=== PATIENT | male | born 1965 | race Hispanic/Latino ===

== ENCOUNTER 2017-09-08 17:04 | Emergency (ER) | payer MEDICAID ==
[2017-09-08] MEDS ORDERED: Aspirin 325 mg EC Tablets PO STA (17:21)
[2017-09-08 17:48] LABS: CHLORIDE 101 mmol/L (98-107); SODIUM 138 mmol/L (132-148)
[2017-09-08 17:49] LABS: POTASSIUM 3.9 mmol/L (3.6-5.2)
[2017-09-08 17:50] LABS: GFR AFRICAN-AMERICAN > 60
[2017-09-08 17:51] LABS: ALB/GLOB RATIO 1.1 (1.0-2.1); ALKALINE PHOSPHATASE 89 U/L (38-126); ALT/SGPT 164 U/L (21-72); AST/SGOT 43 U/L (17-59); BILIRUBIN,TOTAL 0.7 mg/dL (0.2-1.3); BLOOD UREA NITROGEN 12 mg/dL (9-20); CALCIUM 9.3 mg/dl (8.6-10.4); CARBON DIOXIDE 30 mmol/L (22-30); GLUCOSE,RANDOM 95 mg/dL (75-110); TOTAL PROTEIN 7.3 g/dL (6.3-8.3)
[2017-09-08 17:52] LABS: ALCOHOL SERUM < 10 mg/dl (0-10)
--- NOTE | 2017-09-08 17:56 | C.PDOC ---
History Of Present Illness 52 year old male, with PMHx of heroin abuse, is brought to ED via ALS for evaluation of sudden onset of sharp chest pain in the worship today. Denies any associated nausea, vomiting, shortness of breath, cough, or diaphoresis. Pt states that his symptoms feel the same way as his previous OH in 2011, but believes that he is withdrawing. Notes using 3-4 bags of heroin a day intranasally, last use was yesterday. No other complaints. Time Seen by Provider: 09/08/17 17:15 Chief Complaint (Nursing): Chest Pain History Per: Patient History/Exam Limitations: no limitations Onset/Duration Of Symptoms: Hrs Current Symptoms Are (Timing): Still Present Quality: Sharp Associated Symptoms: denies: Nausea, Dyspnea, Diaphoresis, Syncope Modifying Factors: None Exacerbating Factors: None Alleviating Factors: None Recent travel outside of the [place]: No Additional History Per: Patient Past Medical History Reviewed: Historical Data, Nursing Documentation, Vital Signs Vital Signs: Last Vital Signs Temp 98.9 F 09/08/17 17:14 Pulse 80 09/08/17 17:14 Resp 19 09/08/17 17:14 BP 147/65 09/08/17 17:14 Pulse Ox 97 09/08/17 20:42 - Medical History PMH: Asthma Family History: States: Unknown Family Hx - Social History Hx Alcohol Use: No Hx Substance Use: Yes - Immunization History Hx Tetanus Toxoid Vaccination: No Hx Influenza Vaccination: No Hx Pneumococcal Vaccination: No Review Of Systems Except As Marked, All Systems Reviewed And Found Negative. Constitutional: Negative for: Fever, Chills Cardiovascular: Positive for: Chest Pain. Negative for: Palpitations, Edema, Light Headedness Respiratory: Negative for: Cough, Shortness of Breath, Hemoptysis Gastrointestinal: Negative for: Nausea, Vomiting, Abdominal Pain Neurological: Negative for: Headache, Dizziness Psych: Positive for: Withdrawal. Negative for: Suicidal ideation Physical Exam - Physical Exam Appears: Non-toxic, No Acute Distress Skin: Normal Color, Warm, Dry Head: Atraumatic, Normacephalic Eye(s): bilateral: Normal Inspection, PERRL, EOMI Oral Mucosa: Moist Neck: Normal ROM, Supple Chest: Symmetrical, No Deformity, No Tenderness, No Ecchymosis Cardiovascular: Rhythm Regular, No Murmur Respiratory: Normal Breath Sounds, No Accessory Muscle Use, No Rales, No Rhonchi , No Wheezing Gastrointestinal/Abdominal: Normal Exam, Soft, No Tenderness Extremity: Normal ROM, No Pedal Edema, No Deformity Neurological/Psych: Oriented x3, Normal Speech, Normal Cognition ED Course And Treatment - Laboratory Results Result Diagrams: 09/08/17 17:32 09/08/17 17:32 Lab Interpretation: Normal ECG: Interpreted By Me ECG Rhythm: Sinus Rhythm ECG Interpretation: No Acute Changes O2 Sat by Pulse Oximetry: 97 (RA) Pulse Ox Interpretation: Normal - CT Scan/US No standard instances Other Rad Studies (CT/US): Read By Radiologist, Radiology Report Reviewed CT/US Interpretation: FINDINGS: Artifacts: Motion artifact degrades image quality. Lungs and pleural spaces: Trachea and main bronchi are patent.There is no pneumothorax. There. is no lobar or segmental consolidation. There is dependent atelectasis. There are no effusions. Heart and Vasculature: There is a persistent left superior vena cava. Heart size is normal. There is. no pericardial effusion. There is minimal coronary artery calcification. HeThere is no aneurysm or. dissection. Motion and bolus timing limits evaluation of pulmonary arteries. There are no central. pulmonary emboli. Mediastinum: There are shotty mediastinal nodes. There are no pathologically enlarged hilar nodes. There is mid and distal esophageal wall thickening. There is gastric wall thickening at the. gastroesophageal junction. Thyroid: Thyroid is unremarkable. Bones/joints: There are degenerative changes in the osseus structures. Soft tissues: unremarkable. Upper abdomen: There are no acute abnormalities in the visualized portion of the abdomen. IMPRESSION: Mid and distal esophageal wall thickening with mild gastric wall thickening at the. gastroesophageal junction, inflammatory versus neoplastic; no acute pulmonary disease Progress Note: Blood work, UA, EKG, chest CT scan ordered and reviewed. Patient was given Aspirin, and Nitroglycerin. Patient to be evaluated by crisis. Reevaluation Time: 20:48 Reassessment Condition: Unchanged (Patient has no chest pain at this time and is requesting Methadone. He was evaluated by Crisis and provided with referrals to detox programs. He was given CT results and states that he does have reflux symptoms daily.) Disposition Counseled Patient/Family Regarding: Studies Performed, Diagnosis, Need For Followup, Rx Given - Disposition Referrals: [facility] [Outside] Disposition: HOME/ ROUTINE Disposition Time: 20:49 Condition: STABLE Prescriptions: Omeprazole 40 mg PO DAILY #30 capsule. Instructions: Narcotic Abuse (ED), Esophagitis (ED), Gastroesophageal Reflux Disease (ED) Forms: [facility] (Sami) - Clinical Impression Clinical Impression: Narcotic abuse, Reflux esophagitis - Scribe Statement The provider has reviewed the documentation as recorded by the Salvadoribe Lesli Garnica All medical record entries made by the Salvadoribliss were at my direction and personally dictated by me. I have reviewed the chart and agree that the record accurately reflects my personal performance of the history, physical exam, medical decision making, and the department course for this patient. I have also personally directed, reviewed, and agree with the discharge instructions and disposition.
[2017-09-08 17:57] LABS: BASO % 0.4 % (0.0-2.0); EOS # 0.1 K/uL (0.0-0.7); EOS % 1.6 % (0.0-4.0); HEMATOCRIT 38.2 % (35.0-51.0); LYMPH # 1.8 K/uL (1.0-4.3); LYMPH % 25.3 % (20.0-40.0); MEAN CELL VOLUME 91.1 fL (80.0-94.0); MEAN CORPUSCULAR HEMOGLOBIN 30.5 pg (27.0-31.0); MEAN CORPUSCULAR HGB CONC 33.5 g/dL (33.0-37.0); MEAN PLATELET VOLUME 8.2 fL (7.2-11.7); MONO # 0.6 K/uL (0.0-0.8); MONO % 8.7 % (0.0-10.0); RED CELL DISTRIBUTION WIDTH 15.5 % (11.5-14.5); WHITE BLOOD COUNT 7.2 K/uL (4.8-10.8)
[2017-09-08] MEDS ORDERED: Iodixanol 320 MG/ML 100 ML BOTTLE IV ONE (18:45)
--- NOTE | 2017-09-08 20:13 | CT ---
EXAM: CT Chest With Intravenous Contrast EXAM DATE/TIME: 09/08/2017 5:21 PM CLINICAL HISTORY: 52 years old, male; Pain; Chest pain TECHNIQUE: Axial computed tomography images of the chest with intravenous contrast. All CT scans at this facility use one or more dose reduction techniques, viz.: automated exposure control; ma/kV adjustment per patient size (including targeted exams where dose is matched to indication; i.e. head); or iterative reconstruction technique. Coronal and sagittal reformatted images were created and reviewed. CONTRAST: 100 mL of [id number] administered intravenously. COMPARISON: There are no prior studies for comparison. FINDINGS: Artifacts: Motion artifact degrades image quality. Lungs and pleural spaces: Trachea and main bronchi are patent.There is no pneumothorax. There is no lobar or segmental consolidation. There is dependent atelectasis. There are no effusions. Heart and Vasculature: There is a persistent left superior vena cava. Heart size is normal. There is no pericardial effusion. There is minimal coronary artery calcification. HeThere is no aneurysm or dissection. Motion and bolus timing limits evaluation of pulmonary arteries. There are no central pulmonary emboli. Mediastinum: There are shotty mediastinal nodes. There are no pathologically enlarged hilar nodes. There is mid and distal esophageal wall thickening. There is gastric wall thickening at the gastroesophageal junction Thyroid: Thyroid is unremarkable Bones/joints: There are degenerative changes in the osseus structures. Soft tissues: unremarkable Upper abdomen: There are no acute abnormalities in the visualized portion of the abdomen. IMPRESSION: Mid and distal esophageal wall thickening with mild gastric wall thickening at the gastroesophageal junction, inflammatory versus neoplastic; no acute pulmonary disease Additional findings as described above.
[2017-09-08 21:42] LABS: RBC URINE 1 /hpf (0-3); URINE BILIRUBIN NEGATIVE (NEGATIVE); URINE BLOOD NEGATIVE (NEGATIVE); URINE COLOR Yellow (YELLOW); URINE GLUCOSE (UA) NORMAL (Normal); URINE KETONE NEGATIVE (NEGATIVE); URINE LEUKOCYTE ESTERASE NEG Leu/uL (Negative); URINE PROTEIN NEGATIVE (NEGATIVE); WBC URINE 2 /hpf (0-5)
[2017-09-09 04:31] VITALS: BP 119/77; PULSE 72; RESP 20; TEMP 97.9; O2SAT 98
--- NOTE | 2017-09-10 12:48 | CARD ---
APPROVED REPORT EKG Measurement Heart [id number] <Conclusion> Normal sinus rhythm Possible Left atrial enlargement Borderline ECG
== END 2017-09-09 04:38 | disposition short-term general hospital (02) ==
LOC: C.ER 17:04
DX: F11.10 Opioid abuse, uncomplicated (principal); K21.0 Gastro-esophageal reflux disease with esophagitis; I25.2 Old myocardial infarction
CPT/HCPCS: 71260; 80053; 80320; 80324; 80345; 80346; 80349; 80353; 80358; 80361; 81001; 83992; 84484; 85025; 93005; 99285; Q9967

== ENCOUNTER 2018-04-02 22:54 | Emergency (ER) | payer MEDICAID, OTHER ==
[2018-04-02 22:54] VITALS: BMI 21.9
[2018-04-02 23:08] VITALS: O2SAT 98
[2018-04-02 23:38] LABS: BASO % 0.5 % (0.0-2.0); EOS # 0.3 K/uL (0.0-0.7); EOS % 3.4 % (0.0-4.0); HEMOGLOBIN 11.9 g/dL (12.0-18.0); LYMPH # 2.3 K/uL (1.0-4.3); MEAN CORPUSCULAR HEMOGLOBIN 31.5 pg (27.0-31.0); MEAN CORPUSCULAR HGB CONC 34.2 g/dL (33.0-37.0); MEAN PLATELET VOLUME 7.8 fL (7.2-11.7); MONO # 0.7 K/uL (0.0-0.8); MONO % 8.4 % (0.0-10.0); NEUT # 4.8 K/uL (1.8-7.0); NEUT % 59.7 % (50.0-75.0); RBC 3.78 Mil/uL (4.40-5.90)
[2018-04-02 23:49] LABS: ALBUMIN 3.8 g/dL (3.5-5.0); ALT/SGPT 69 U/L (21-72); AST/SGOT 50 U/L (17-59); BLOOD UREA NITROGEN 19 mg/dL (9-20); CALCIUM 9.3 mg/dl (8.6-10.4); GFR AFRICAN-AMERICAN > 60; GFR NON-AFRICAN AMERICAN > 60
--- NOTE | 2018-04-02 23:52 | C.PDOC ---
History Of Present Illness patient seen tonite due to onset of left sided chwat pain . Had same episode few weeks ago and admitted to [facility]. with negatiive work up. Lwft sided chest pain inctreased by movement and palpation. Chief Complaint (Nursing): Chest Pain History Per: Patient History/Exam Limitations: no limitations Onset/Duration Of Symptoms: Hrs Current Symptoms Are (Timing): Still Present Severity: None Pain Scale Rating Of: 4 Location Of Discomfort (Image): 1 - left anterior cheat area Quality: Sharp Associated Symptoms: denies: Nausea, Dyspnea Exacerbating Factors: Turning, Movement, Other (palpation) Alleviating Factors: None Recent travel outside of the [place]: No Additional History Per: Patient Past Medical History Vital Signs: Last Vital Signs Temp 99.1 F 04/02/18 23:04 Pulse 68 04/02/18 23:04 Resp 20 04/02/18 23:04 BP 119/74 04/02/18 23:04 Pulse Ox 98 04/02/18 23:57 - Medical History PMH: Anxiety, Asthma, Depression, Sexually Transmitted Disease Denies: Diabetes, Hepatitis, HIV, HTN, Chronic Kidney Disease, Seizures Surgical History: No Surg Hx - [facility] Procedures DRAINAGE OF L UP ARM SUBCU/FASCIA, PERC APPROACH, DIAGN (11/04/17) DRAINAGE OF RIGHT UPPER ARM, PERCUTANEOUS APPROACH, DIAGN (03/18/18) INDIV PSYCHOTHERAPY FOR SUBSTANCE ABUSE TREATMENT, SUPPORT (01/02/18) INDIV PSYCHOTHERAPY FOR SUBSTANCE ABUSE, MOTIVATION ENHANCE (01/02/18) Family History: States: Unknown Family Hx - Social History Hx Alcohol Use: Yes Hx Substance Use: No - Immunization History Hx Tetanus Toxoid Vaccination: No Hx Influenza Vaccination: No Hx Pneumococcal Vaccination: No Review Of Systems Constitutional: Negative for: Fever, Chills, Sweats Cardiovascular: Positive for: Chest Pain. Negative for: Palpitations, Orthopnea , Paroxysmal Noc. Dyspnea, Edema, Light Headedness Respiratory: Negative for: Cough, Shortness of Breath, Hemoptysis, SOB with Excertion, Pleuritic Pain, Sputum Gastrointestinal: Negative for: Nausea, Vomiting, Abdominal Pain, Diarrhea Genitourinary: Negative for: Dysuria Musculoskeletal: Negative for: Neck Pain, Shoulder Pain, Arm Pain Skin: Negative for: Rash, Lesions Neurological: Negative for: Weakness, Numbness, Incoordination, Change in Speech , Dizziness Psych: Negative for: Anxiety, Depression Physical Exam - Physical Exam Appears: Non-toxic Skin: Normal Color Eye(s): bilateral: Normal Inspection, PERRL, EOMI Nose: Normal Throat: Normal Neck: Normal Chest: Symmetrical, No Deformity, Tenderness (left anterior chest wall), No Ecchymosis, No Subcutaneous Emphysema Cardiovascular: Rhythm Regular, No Edema, No Friction Rub, No Murmur, No JVD Respiratory: Normal Breath Sounds, No Rales Extremity: Normal ROM ED Course And Treatment - Laboratory Results Result Diagrams: 04/02/18 23:32 04/02/18 23:32 ECG: Interpreted By Me, Viewed By Me ECG Rhythm: Sinus Rhythm ECG Interpretation: No Acute Changes Interpretation Of ECG: NSR, possible LVH Rate From EC O2 Sat by Pulse Oximetry: 98 Pulse Ox Interpretation: Normal - Radiology CXR Interpretation: Yes: Other (patient refused Chest x-ray) Disposition Counseled Patient/Family Regarding: Diagnosis - Disposition Referrals: [facility] [Outside] Disposition: HOME/ ROUTINE Disposition Time: 01:43 Condition: STABLE Prescriptions: Naproxen 375 mg PO TIDPC #20 tablet Instructions: Costochondritis Forms: [facility] (Slovenian) - POA Present On Arrival: None - Clinical Impression Clinical Impression: Chest wall pain
[2018-04-03 00:01] LABS: CK-MB 0.91 ng/mL (0.0-3.38)
[2018-04-03 02:08] VITALS: BP 105/64; PULSE 75; RESP 16; TEMP 97.8
--- NOTE | 2018-04-05 17:04 | CARD ---
APPROVED REPORT EKG Measurement Heart [id number] <Conclusion> Normal sinus rhythm Minimal voltage criteria for LVH, may be normal variant Borderline ECG
== END 2018-04-03 02:15 | disposition home or self-care (01) ==
LOC: C.ER 22:54
DX: R07.89 Other chest pain (principal)
CPT/HCPCS: 80053; 84484; 85025; 96374; 99284; J1885

== ENCOUNTER 2018-05-29 13:04 | Inpatient (IN) | payer MEDICAID, OTHER ==
[2018-05-29 13:04] VITALS: BMI 22.2
--- NOTE | 2018-05-29 13:56 | C.PDOC ---
History Of Present Illness 53 year old male patient with PMHx of hepatitis C presents to the ER requesting detox for heroin. Patient denies homicide ideation, suicide ideation, fevers, and chills. Patient also smokes and does not have any medical complaints at this time. Time Seen by Provider: 05/29/18 13:41 History Per: Patient History/Exam Limitations: no limitations Modifying Factor(s): Narcotics (heroin), Other (nicotine) Associated Symptoms: denies: Suicidal Thoughts, Other (suicide ideation, fever, and chills) Past Medical History Reviewed: Historical Data, Nursing Documentation, Vital Signs Vital Signs: Last Vital Signs Temp 98.6 F 05/29/18 13:57 Pulse 59 L 05/29/18 13:57 Resp 20 05/29/18 13:57 BP 104/66 05/29/18 13:57 Pulse Ox 99 05/29/18 13:57 - Medical History PMH: Anxiety, Asthma, Depression, Sexually Transmitted Disease - [facility] Procedures DRAINAGE OF L UP ARM SUBCU/FASCIA, PERC APPROACH, DIAGN (11/04/17) DRAINAGE OF RIGHT UPPER ARM, PERCUTANEOUS APPROACH, DIAGN (03/18/18) INDIV PSYCHOTHERAPY FOR SUBSTANCE ABUSE TREATMENT, SUPPORT (01/02/18) INDIV PSYCHOTHERAPY FOR SUBSTANCE ABUSE, MOTIVATION ENHANCE (01/02/18) Family History: States: Unknown Family Hx - Social History Hx Alcohol Use: No Hx Substance Use: Yes (heroine) - Immunization History Hx Tetanus Toxoid Vaccination: Yes Hx Influenza Vaccination: No Hx Pneumococcal Vaccination: No Review Of Systems Except As Marked, All Systems Reviewed And Found Negative. Constitutional: Negative for: Fever, Chills Psych: Negative for: Suicidal ideation, Other (homicide ideation) Physical Exam - Physical Exam Appears: Non-toxic, No Acute Distress Skin: Normal Color, Warm, Dry Eye(s): bilateral: Normal Inspection Nose: Normal Oral Mucosa: Moist Throat: Normal Neck: Normal ROM, Supple Chest: Symmetrical, No Deformity Cardiovascular: Rhythm Regular Respiratory: Normal Breath Sounds, No Rales, No Rhonchi, No Wheezing Gastrointestinal/Abdominal: Soft, No Tenderness Extremity: Normal ROM (x4) Neurological/Psych: Oriented x3, Normal Speech, Normal Sensation, Normal Reflexes Gait: Steady ED Course And Treatment - Laboratory Results Result Diagrams: 05/29/18 16:17 05/29/18 16:17 Lab Interpretation: No Acute Changes Progress Note: Case discussed with adz worker who request admission to Dr Currie for Detox Reassessment Condition: Unchanged - Physician Consult Information Physician Contacted: Rom Currie Outcome Of Conversation: admit Medical Decision Making Medical Decision Making: Impression: polysubstance abuse Plans: -- blood work -- nicoderm -- UA -- pending detox bed Disposition Discussed With Dr.: Rom Currie Doctor Will See Patient In The: Hospital - Disposition Disposition: HOSPITALIZED Disposition Time: 17:00 Condition: STABLE Instructions: Drug Abuse and Drug Addiction (DC) - POA Present On Arrival: None - Clinical Impression Clinical Impression: Drug abuse, Narcotic abuse - PA / CCNA / Resident Statement MD/ has reviewed & agrees with the documentation as recorded. - Scribe Statement The provider has reviewed the documentation as recorded by the Salvadoribliss Sandoval Do All medical record entries made by the Scribe were at my direction and personally dictated by me. I have reviewed the chart and agree that the record accurately reflects my personal performance of the history, physical exam, medical decision making, and the department course for this patient. I have also personally directed, reviewed, and agree with the discharge instructions and disposition. Decision To Admit - Pt Status Changed To: Hospital Disposition Of: Inpatient - Admit Certification Admit to Inpatient:: After my assessment, the patient will require hospitalization for at least two midnights. This is because of the severity of symptoms shown, intensity of services needed, and/or the medical risk in this patient being treated as an outpatient. - InPatient: Physician Admission Certification: I certify that this patient requires 2 or more midnights of care for the following reason:: opioid abuse disorder - . Bed Request Type: Detox Admitting Physician: Rom Currie Patient Diagnosis: Drug abuse, Narcotic abuse
[2018-05-29 14:55] LABS: URINE BILIRUBIN NEGATIVE (NEGATIVE); URINE BLOOD NEGATIVE (NEGATIVE); URINE CLARITY Clear (Clear); URINE COLOR Yellow (YELLOW); URINE GLUCOSE (UA) NORMAL (Normal); URINE LEUKOCYTE ESTERASE NEG Leu/uL (Negative); URINE PROTEIN NEGATIVE (NEGATIVE); URINE UROBILINOGEN NORMAL mg/dL (0.2-1.0)
[2018-05-29 15:09] LABS: BARBITURATES, UR NEGATIVE (NEGATIVE); BENZODIAZEPINES, UR NEGATIVE (NEGATIVE); PHENCYCLIDINE, UR NEGATIVE (NEGATIVE)
[2018-05-29 15:10] LABS: OPIATES, UR POSITIVE (NEGATIVE)
[2018-05-29 16:21] LABS: BASO % 0.3 % (0.0-2.0); EOS # 0.2 K/uL (0.0-0.7); EOS % 3.6 % (0.0-4.0); HEMOGLOBIN 12.6 g/dL (12.0-18.0); LYMPH # 1.6 K/uL (1.0-4.3); MEAN CELL VOLUME 91.9 fL (80.0-94.0); MEAN CORPUSCULAR HEMOGLOBIN 31.4 pg (27.0-31.0); MEAN CORPUSCULAR HGB CONC 34.1 g/dL (33.0-37.0); MEAN PLATELET VOLUME 7.8 fL (7.2-11.7); MONO # 0.4 K/uL (0.0-0.8); MONO % 6.1 % (0.0-10.0); NEUT # 4.2 K/uL (1.8-7.0); RED CELL DISTRIBUTION WIDTH 13.8 % (11.5-14.5); WHITE BLOOD COUNT 6.4 K/uL (4.8-10.8)
[2018-05-29 16:34] LABS: ALB/GLOB RATIO 1.1 (1.0-2.1); ALBUMIN 3.7 g/dL (3.5-5.0); ALT/SGPT 41 U/L (21-72); AST/SGOT 30 U/L (17-59); BLOOD UREA NITROGEN 11 mg/dL (9-20); CALCIUM 8.9 mg/dl (8.6-10.4); GFR AFRICAN-AMERICAN > 60; GFR NON-AFRICAN AMERICAN > 60
[2018-05-29] MEDS ORDERED: Aluminum Hydroxide/Magnesium Hydroxide Susp (30 mL) PO PRN (18:11)
--- NOTE | 2018-05-29 18:26 | PCM.BM ---
Treatment Plan Problems - Problems identified on initial assessmt potiential for opiate withdrawal Date Initiated: 05/29/18 Time Initiated: 18:25 Assessment reference: NA Status: Active Treatment assets and liabiliti Patient Assests: cooperative, self-reliant, ADL independent, physically healthy , cognitively intact Patient Liabilities: substance abuse - Milieu Protocol Maintain good personal hygiene: daily Encourage regular showers, daily Remind patient to perform daily oral care, daily Assist patient to perform ADL's Maintain personal safety: every shift Educate patient to report safety concerns to staff, every shift Monitor environment for contraband/sharps Medication safety: Monitor for expected outcome, potential side effects: every shift, Assess barriers to learning: every shift, Assess readiness for medication education: every shift
[2018-05-29 18:41] VITALS: RESP 18
--- NOTE | 2018-05-30 11:40 | PCM.PSYCH ---
Initial Psychiatric Evaluation - Initial Psychiatric Evaluation Type of Admission: Voluntary Legal Status: Capacity Current Medications: Active Medications Generic Name Dose Route Start Last Admin Trade Name Freq PRN Reason Stop Dose Admin Al Hydrox/Mg Hydrox/Simethicone 30 ml 05/29/18 18:11 Maalox 30 Ml PO TID PRN Indigestion / Heartburn Clonidine HCl 0.1 mg 05/29/18 18:11 Catapres PO Q8 PRN COWS Score More or Equal to 5 Dicyclomine HCl 10 mg 05/29/18 18:15 Bentyl PO Q6 PRN Abdominal Cramps Gabapentin 400 mg 05/30/18 10:00 05/30/18 09:04 Neurontin PO 400 mg TID ROSIO Administration Hydroxyzine HCl 25 mg 05/29/18 18:17 Atarax PO Q6 PRN Anxiety Ibuprofen 400 mg 05/29/18 18:16 Motrin Tab PO Q6 PRN Pain, moderate (4-7) Loperamide HCl 2 mg 05/29/18 18:11 Imodium PO Q8 PRN Diarrhea Methadone HCl 15 mg 05/30/18 10:00 05/30/18 09:04 Methadone PO 06/02/18 09:59 15 mg Q24H ROSIO Administration Taper Nicotine 1 patch 05/30/18 10:00 05/30/18 09:04 Nicoderm Cq TD 1 patch DAILY ROSIO Administration Ondansetron HCl 4 mg 05/29/18 18:11 Zofran Tab PO Q8 PRN Nausea/Vomiting Trazodone HCl 50 mg 05/29/18 22:00 05/29/18 21:31 Desyrel PO 50 mg HS ROSIO Administration Past Psychiatric History - Past Psychiatric History Pertinent Medical Hx (Current Medical&Sleep Prob, Allergies): Allergies Allergy/AdvReac Type Severity Reaction Status Date / Time No Known Allergies Allergy Verified 05/29/18 14:23 No Known Home Med 05/21/18
--- NOTE | 2018-05-30 13:41 | PCM.PYCHDC ---
Mental Status Examination - Mental Status Examination Orientation: Person Discharge Summary - Discharge Note Laboratory Data: Abnormal Lab Results 05/29/18 05/29/18 05/29/18 14:43 14:43 16:17 WBC 6.4 RBC 4.00 L Hgb 12.6 Hct 36.8 MCV 91.9 MCH 31.4 H MCHC 34.1 RDW 13.8 Plt Count 184 MPV 7.8 Neut % (Auto) 65.0 Lymph % (Auto) 25.0 Howard % (Auto) 6.1 Eos % (Auto) 3.6 Baso % (Auto) 0.3 Neut # (Auto) 4.2 Lymph # (Auto) 1.6 Howard # (Auto) 0.4 Eos # (Auto) 0.2 Baso # (Auto) 0.0 Sodium Potassium Chloride Carbon Dioxide Anion Gap BUN Creatinine Est GFR ( Amer) Est GFR (Non-Af Amer) Random Glucose Calcium Total Bilirubin AST ALT Alkaline Phosphatase Total Protein Albumin Globulin Albumin/Globulin Ratio Urine Color Yellow Urine Clarity Clear Urine pH 6.0 Ur Specific Curlew 1.020 Urine Protein Negative Urine Glucose (UA) Normal Urine Ketones Negative Urine Blood Negative Urine Nitrate Negative Urine Bilirubin Negative Urine Urobilinogen Normal Ur Leukocyte Esterase Neg Urine WBC (Auto) < 1 Urine RBC (Auto) < 1 Urine Opiates Screen Positive H Urine Methadone Screen Negative Ur Barbiturates Screen Negative Ur Phencyclidine Scrn Negative Ur Amphetamines Screen Negative U Benzodiazepines Scrn Negative U Oth Cocaine Metabols Negative U Cannabinoids Screen Negative Alcohol, Quantitative 05/29/18 16:17 WBC RBC Hgb Hct MCV MCH MCHC RDW Plt Count MPV Neut % (Auto) Lymph % (Auto) Howard % (Auto) Eos % (Auto) Baso % (Auto) Neut # (Auto) Lymph # (Auto) Howard # (Auto) Eos # (Auto) Baso # (Auto) Sodium 143 Potassium 4.3 Chloride 103 Carbon Dioxide 31 H Anion Gap 13 BUN 11 Creatinine 0.6 L Est GFR ( Amer) > 60 Est GFR (Non-Af Amer) > 60 Random Glucose 127 H Calcium 8.9 Total Bilirubin 0.4 AST 30 ALT 41 Alkaline Phosphatase 69 Total Protein 7.1 Albumin 3.7 Globulin 3.4 Albumin/Globulin Ratio 1.1 Urine Color Urine Clarity Urine pH Ur Specific Curlew Urine Protein Urine Glucose (UA) Urine Ketones Urine Blood Urine Nitrate Urine Bilirubin Urine Urobilinogen Ur Leukocyte Esterase Urine WBC (Auto) Urine RBC (Auto) Urine Opiates Screen Urine Methadone Screen Ur Barbiturates Screen Ur Phencyclidine Scrn Ur Amphetamines Screen U Benzodiazepines Scrn U Oth Cocaine Metabols U Cannabinoids Screen Alcohol, Quantitative < 10 Consultations:: List each consultation separately and include: 1. Reason for request. 2. Findings. 3. Follow-up Summary of Hospital Course include:: 1. Description of specific treatment plan utilized for patients during their course of treatmen. 2. Summarize the time- course for resolution of acute symptoms and/or regressed behaviors. 3. Describe issues identified and worked on during hospitalization. 4. Describe medication utilized. 5. Describe medical problems identified and treated. 6. Reassessment of suicide risk - Final Diagnosis (DSM 5) Condition upon Discharge: STABLE Disposition: HOME/ ROUTINE
[2018-05-30 14:00] VITALS: BP 107/71; PULSE 60; TEMP 98.3; O2SAT 96
== END 2018-05-30 14:00 | disposition home or self-care (01) | DRG 744 ==
LOC: C.ER 13:04 → C.7D 16:54
PROC: HZ81ZZZ Medication Management for Substance Abuse Treatment, Methadone Maintenance (ICD-10-PCS; principal; 2018-05-29)
PROC: HZ90ZZZ Pharmacotherapy for Substance Abuse Treatment, Nicotine Replacement (ICD-10-PCS; 2018-05-29)
DX: F11.10 Opioid abuse, uncomplicated (principal); F17.210 Nicotine dependence, cigarettes, uncomplicated; J45.909 Unspecified asthma, uncomplicated; F32.9 Major depressive disorder, single episode, unspecified; F41.9 Anxiety disorder, unspecified; B18.2 Chronic viral hepatitis C

== ENCOUNTER 2018-10-04 20:38 | Inpatient (IN) | payer MEDICAID, OTHER ==
[2018-10-04 20:39] VITALS: BMI 24.7
[2018-10-04 21:15] LABS: BASO # 0.1 K/uL (0.0-0.2); BASO % 0.7 % (0.0-2.0); EOS # 0.2 K/uL (0.0-0.7); EOS % 1.7 % (0.0-4.0); HEMOGLOBIN 12.1 g/dL (12.0-18.0); LYMPH # 1.9 K/uL (1.0-4.3); LYMPH % 21.7 % (20.0-40.0); MEAN CELL VOLUME 91.5 fL (80.0-94.0); MEAN CORPUSCULAR HEMOGLOBIN 31.3 pg (27.0-31.0); MEAN CORPUSCULAR HGB CONC 34.2 g/dL (33.0-37.0); MEAN PLATELET VOLUME 7.5 fL (7.2-11.7); MONO # 0.6 K/uL (0.0-0.8); MONO % 7.2 % (0.0-10.0); NEUT % 68.7 % (50.0-75.0); NRBC % 0.1 % (0.0-2.0); RBC 3.87 Mil/uL (4.40-5.90); RED CELL DISTRIBUTION WIDTH 14.7 % (11.5-14.5); WHITE BLOOD COUNT 8.7 K/uL (4.8-10.8)
[2018-10-04 21:22] LABS: URINE BILIRUBIN NEGATIVE (NEGATIVE); URINE BLOOD NEGATIVE (NEGATIVE); URINE CLARITY Clear (Clear); URINE COLOR Yellow (YELLOW); URINE GLUCOSE (UA) NORMAL (Normal); URINE LEUKOCYTE ESTERASE NEG Leu/uL (Negative); URINE PROTEIN NEGATIVE (NEGATIVE)
[2018-10-04 21:37] LABS: BARBITURATES, UR NEGATIVE (NEGATIVE); BENZODIAZEPINES, UR NEGATIVE (NEGATIVE); PHENCYCLIDINE, UR NEGATIVE (NEGATIVE)
[2018-10-04 21:40] LABS: OPIATES, UR POSITIVE (NEGATIVE)
--- NOTE | 2018-10-04 21:43 | C.PDOC ---
History Of Present Illness 53 year old male presents to the ED requesting heroin detox. Patient states his last use was yesterday. Patient denies SI/HI, hallucinations, CP, SOB, injury, fall, trauma. Time Seen by Provider: 10/04/18 21:00 Chief Complaint (Nursing): Psychiatric Evaluation History Per: Patient History/Exam Limitations: no limitations Onset/Duration Of Symptoms: Hrs Current Symptoms Are (Timing): Still Present Suicide/Self Injury Attempted (Context): None Modifying Factor(s): Other (Heroin) Associated Symptoms: denies: Depression, Suicidal Thoughts, Suicidal Plan Recent travel outside of the [place]: No Additional History Per: Patient Past Medical History Reviewed: Historical Data, Nursing Documentation, Vital Signs Vital Signs: Last Vital Signs Temp 99.8 F H 10/04/18 20:49 Pulse 83 10/04/18 20:49 Resp 18 10/04/18 20:49 BP 110/77 10/04/18 20:49 Pulse Ox 99 10/04/18 20:49 - Medical History PMH: Anxiety, Asthma, Depression, Hepatitis (Hep C), HTN, Pulmonary Embolism, Sexually Transmitted Disease Denies: Diabetes, HIV, Chronic Kidney Disease, Seizures Surgical History: No Surg Hx - [facility] Procedures DRAINAGE OF L UP ARM SUBCU/FASCIA, PERC APPROACH, DIAGN (11/04/17) DRAINAGE OF RIGHT UPPER ARM, PERCUTANEOUS APPROACH, DIAGN (03/18/18) INDIV PSYCHOTHERAPY FOR SUBSTANCE ABUSE TREATMENT, SUPPORT (01/02/18) INDIV PSYCHOTHERAPY FOR SUBSTANCE ABUSE, MOTIVATION ENHANCE (01/02/18) MEDS MGMT FOR SUBSTANCE ABUSE TREATMENT, METHADONE MAINT (05/29/18) PHARMACOTHERAPY FOR SUBSTANCE ABUSE, NICOTINE REPLACE (05/29/18) Family History: States: Unknown Family Hx - Social History Hx Alcohol Use: No (Per Patient) Hx Substance Use: Yes (Per Patient) - Immunization History Hx Tetanus Toxoid Vaccination: Yes Hx Influenza Vaccination: No Hx Pneumococcal Vaccination: No Review Of Systems Constitutional: Negative for: Fever, Chills Cardiovascular: Negative for: Chest Pain Respiratory: Negative for: Cough, Shortness of Breath Gastrointestinal: Negative for: Nausea, Vomiting, Abdominal Pain Psych: Negative for: Depression, Suicidal ideation Physical Exam - Physical Exam Appears: Non-toxic, No Acute Distress, Other (bizarre, thin white male with long laird hair) Skin: Normal Color, Warm, Dry Head: Atraumatic, Normacephalic Eye(s): bilateral: Normal Inspection Neck: Normal ROM, Supple Chest: Symmetrical Cardiovascular: Rhythm Regular Respiratory: Normal Breath Sounds, No Rales, No Rhonchi, No Wheezing Gastrointestinal/Abdominal: Soft, No Tenderness, No Guarding, No Rebound Extremity: Normal ROM, No Tenderness, No Swelling Neurological/Psych: Oriented x3, Normal Speech, Normal Cognition Gait: Steady ED Course And Treatment - Laboratory Results Result Diagrams: 10/04/18 21:11 10/04/18 21:11 Lab Interpretation: Abnormal (tox + opiates) O2 Sat by Pulse Oximetry: 99 (ON RA) Pulse Ox Interpretation: Normal Reevaluation Time: 23:29 Reassessment Condition: Improved - Physician Consult Information Outcome Of Conversation: 2330: d/w Crisis, ok to Detox Medical Decision Making Medical Decision Making: Plan: * Labs * UA * crisis evaluation Disposition Doctor Will See Patient In The: Hospital Counseled Patient/Family Regarding: Studies Performed, Diagnosis - Disposition Referrals: Non [facility] Provider, [Primary Care Provider] - Disposition: HOSPITALIZED Disposition Time: 23:29 Condition: GOOD Forms: [facility] (Guamanian) - Clinical Impression Clinical Impression: Narcotic abuse - Scribe Statement The provider has reviewed the documentation as recorded by the Scribe Gerardo Gallardo All medical record entries made by the Scribe were at my direction and personally dictated by me. I have reviewed the chart and agree that the record accurately reflects my personal performance of the history, physical exam, medical decision making, and the department course for this patient. I have also personally directed, reviewed, and agree with the discharge instructions and disposition.
[2018-10-04 21:49] LABS: ALB/GLOB RATIO 1.1 (1.0-2.1); ALBUMIN 3.9 g/dL (3.5-5.0); ALT/SGPT 183 U/L (21-72); AST/SGOT 131 U/L (17-59); BLOOD UREA NITROGEN 12 mg/dL (9-20); GFR NON-AFRICAN AMERICAN > 60
[2018-10-05 06:20] VITALS: RESP 20
[2018-10-05] MEDS ORDERED: Aluminum Hydroxide/Magnesium Hydroxide Susp (30 mL) PO PRN (08:44)
--- NOTE | 2018-10-05 12:28 | PCM.PSYCH ---
Initial Psychiatric Evaluation - Initial Psychiatric Evaluation Type of Admission: Voluntary Legal Status: Capacity Current Medications: Active Medications Generic Name Dose Route Start Last Admin Trade Name Freq PRN Reason Stop Dose Admin Al Hydrox/Mg Hydrox/Simethicone 30 ml 10/05/18 08:44 Maalox 30 Ml PO TID PRN Indigestion / Heartburn Clonidine HCl 0.1 mg 10/05/18 08:44 Catapres PO Q4 PRN COWS Score More or Equal to 5 Hydroxyzine HCl 50 mg 10/05/18 08:42 Atarax PO Q6H PRN Anxiety Ibuprofen 600 mg 10/05/18 08:42 Motrin Tab PO Q6H PRN Pain, moderate (4-7) Loperamide HCl 2 mg 10/05/18 08:44 Imodium PO Q8 PRN Diarrhea Methadone HCl 25 mg 10/05/18 10:00 10/05/18 10:26 Methadone PO 10/10/18 09:59 25 mg Q24H ROSIO Administration Taper Ondansetron HCl 4 mg 10/05/18 08:44 Zofran Tab PO Q8 PRN Nausea/Vomiting Rivaroxaban 10 mg 10/05/18 10:00 10/05/18 09:42 Xarelto PO 10 mg DAILY ROSIO Administration Trazodone HCl 100 mg 10/05/18 08:42 Desyrel PO HS PRN Insomnia Past Psychiatric History - Past Psychiatric History Pertinent Medical Hx (Current Medical&Sleep Prob, Allergies): Allergies Allergy/AdvReac Type Severity Reaction Status Date / Time No Known Allergies Allergy Verified 10/04/18 20:48 Rivaroxaban [Xarelto] 10 mg PO DAILY 10/04/18
[2018-10-05 14:35] VITALS: BP 102/64; PULSE 66; TEMP 98.3; O2SAT 98
--- NOTE | 2018-10-06 16:45 | PCM.PYCHDC ---
Mental Status Examination - Mental Status Examination Orientation: Person Discharge Summary - Discharge Note Consultations:: List each consultation separately and include: 1. Reason for request. 2. Findings. 3. Follow-up Summary of Hospital Course include:: 1. Description of specific treatment plan utilized for patients during their course of treatmen. 2. Summarize the time- course for resolution of acute symptoms and/or regressed behaviors. 3. Describe issues identified and worked on during hospitalization. 4. Describe medication utilized. 5. Describe medical problems identified and treated. 6. Reassessment of suicide risk - Final Diagnosis (DSM 5) Condition upon Discharge: FAIR Disposition: AGAINST MEDICAL ADVICE
== END 2018-10-05 15:19 | disposition left against medical advice (07) ==
LOC: SUPCPDRO 20:38 → C.ER 20:38 → C.7D 23:30
PROVIDERS: ADMIT Psychiatry & Neurology Psychiatry; ATTEND Psychiatry & Neurology Psychiatry
DX: F11.10 Opioid abuse, uncomplicated (principal); F32.9 Major depressive disorder, single episode, unspecified; I10 Essential (primary) hypertension; J45.909 Unspecified asthma, uncomplicated; Z86.711 Personal history of pulmonary embolism; B19.20 Unspecified viral hepatitis C without hepatic coma; Z53.21 Procedure and treatment not carried out due to patient leaving prior to being seen by health care provider